=== PATIENT | female | born 1985 | race Caucasian/White ===

== ENCOUNTER → 2016-08-04 | Outpatient (CLI) | payer OTHER ==
[2016-08-04 10:23] LABS: HEMATOCRIT 37.7 % (36.0-47.0); HEMOGLOBIN 12.5 g/dL (12.0-15.5); HGB HCT DIFFERENCE -0.2; MEAN CORPUSCULAR HEMOGLOBIN 26.9 pg (27.0-33.4); MEAN CORPUSCULAR HGB CONC 33.2 g/dL (32.0-36.0); MEAN CORPUSCULAR VOLUME 81 fl (80-97); RED BLOOD COUNT 4.65 10^6/uL (3.72-5.28); RED CELL DISTRIBUTION WIDTH 13.7 % (11.5-14.0)
[2016-08-04 10:43] LABS: ASPARTATE AMINO TRANSFERASE 15 U/L (14-36); CREATININE RESULT 0.55 mg/dL (0.52-1.25); LDH 411 U/L (313-618); URIC ACID 4.7 mg/dL (2.5-6.2)
== END ==
LOC: OD 09:28
PROVIDERS: ATTEND Registered Nurse Women's Health Care, Ambulatory
DX: O13.9 Gestational [pregnancy-induced] hypertension without significant proteinuria, unspecified trimester (principal)
CPT/HCPCS: 36415; 82565; 83615; 84450; 84550; 85027

== ENCOUNTER → 2016-08-11 | Outpatient (CLI) | payer OTHER ==
[2016-08-11 16:35] LABS: HEMATOCRIT 38.1 % (36.0-47.0); HEMOGLOBIN 12.2 g/dL (12.0-15.5); HGB HCT DIFFERENCE -1.5; MEAN CORPUSCULAR HEMOGLOBIN 26.4 pg (27.0-33.4); MEAN CORPUSCULAR VOLUME 83 fl (80-97); RED BLOOD COUNT 4.61 10^6/uL (3.72-5.28); RED CELL DISTRIBUTION WIDTH 13.8 % (11.5-14.0); WHITE BLOOD COUNT 11.9 10^3/uL (4.0-10.5)
[2016-08-11 17:02] LABS: ASPARTATE AMINO TRANSFERASE 17 U/L (14-36); CREATININE RESULT 0.58 mg/dL (0.52-1.25); LDH 430 U/L (313-618); URIC ACID 4.4 mg/dL (2.5-6.2)
== END ==
LOC: OD 16:03
PROVIDERS: ATTEND Registered Nurse Women's Health Care, Ambulatory
DX: O13.9 Gestational [pregnancy-induced] hypertension without significant proteinuria, unspecified trimester (principal)
CPT/HCPCS: 36415; 82565; 83615; 84450; 84550; 85027

== ENCOUNTER → 2016-08-18 | Outpatient (CLI) | payer OTHER ==
[2016-08-18 12:51] LABS: HEMOGLOBIN 12.4 g/dL (12.0-15.5); HGB HCT DIFFERENCE 0.2; MEAN CORPUSCULAR HEMOGLOBIN 27.4 pg (27.0-33.4); MEAN CORPUSCULAR HGB CONC 33.5 g/dL (32.0-36.0); MEAN CORPUSCULAR VOLUME 82 fl (80-97); RED BLOOD COUNT 4.51 10^6/uL (3.72-5.28); RED CELL DISTRIBUTION WIDTH 14.1 % (11.5-14.0); WHITE BLOOD COUNT 10.8 10^3/uL (4.0-10.5)
[2016-08-18 13:16] LABS: ASPARTATE AMINO TRANSFERASE 21 U/L (14-36); CREATININE RESULT 0.61 mg/dL (0.52-1.25); LDH 481 U/L (313-618); URIC ACID 4.3 mg/dL (2.5-6.2)
== END ==
LOC: OD 12:14
PROVIDERS: ATTEND Registered Nurse Women's Health Care, Ambulatory
DX: O14.90 Unspecified pre-eclampsia, unspecified trimester (principal)
CPT/HCPCS: 36415; 82565; 83615; 84450; 84550; 85027

== ENCOUNTER 2016-08-22 09:21 | Outpatient (CLI) | payer OTHER ==
--- NOTE | 2016-08-22 10:01 | L&D Flow Sheet ---
LD Flowsheet Datetime Report Generated by CPN: 08/22/2016 10:00 Datetime: 08/22/2016 09:45 Vital Signs NBP Sys/Parul/Mean (mmHg): 127 (QS system process) : 77 (QS system process) : 89 (QS system process) Pulse: 94 (QS system process) Datetime: 08/22/2016 09:43 Communication Communication Comments: IV started (Elle Reji, RN) Datetime: 08/22/2016 09:33 Patient Care Patient Position/Activity: Right Extreme; Low Fowlers (Elle Mendoza, RN) Datetime: 08/22/2016 09:32 Communication Communication Comments: sent from office for repeat NST, IV fluids for hydration for stomach bug (Elle Mendoza RN)
== END 2016-08-22 10:43 | disposition home or self-care (01) ==
LOC: LC 09:21
PROVIDERS: ATTEND Obstetrics & Gynecology
PROC: 4A1HXCZ Monitoring of Products of Conception, Cardiac Rate, External Approach (ICD-10-PCS; principal; 2016-08-22)
DX: Z34.93 Encounter for supervision of normal pregnancy, unspecified, third trimester (principal); Z36 Encounter for antenatal screening of mother; Z3A.35 35 weeks gestation of pregnancy
CPT/HCPCS: 59025

== ENCOUNTER → 2016-08-25 | Outpatient (CLI) | payer OTHER ==
[2016-08-25 11:35] LABS: ASPARTATE AMINO TRANSFERASE 19 U/L (14-36); CREATININE RESULT 0.59 mg/dL (0.52-1.25); LDH 434 U/L (313-618); URIC ACID 4.7 mg/dL (2.5-6.2)
[2016-08-25 11:41] LABS: HEMATOCRIT 40.4 % (36.0-47.0); HEMOGLOBIN 13.1 g/dL (12.0-15.5); HGB HCT DIFFERENCE -1.1; MEAN CORPUSCULAR HEMOGLOBIN 26.5 pg (27.0-33.4); MEAN CORPUSCULAR HGB CONC 32.5 g/dL (32.0-36.0); MEAN CORPUSCULAR VOLUME 82 fl (80-97); RED BLOOD COUNT 4.95 10^6/uL (3.72-5.28); WHITE BLOOD COUNT 10.8 10^3/uL (4.0-10.5)
== END ==
LOC: OD 09:30
PROVIDERS: ATTEND Registered Nurse Women's Health Care, Ambulatory
DX: O14.90 Unspecified pre-eclampsia, unspecified trimester (principal)
CPT/HCPCS: 36415; 82565; 83615; 84450; 84550; 85027

== ENCOUNTER → 2016-09-01 | Outpatient (CLI) | payer OTHER ==
[2016-09-01 11:04] LABS: HEMATOCRIT 40.2 % (36.0-47.0); HGB HCT DIFFERENCE -1.2; MEAN CORPUSCULAR HEMOGLOBIN 26.1 pg (27.0-33.4); MEAN CORPUSCULAR HGB CONC 32.5 g/dL (32.0-36.0); MEAN CORPUSCULAR VOLUME 80 fl (80-97); RED CELL DISTRIBUTION WIDTH 14.4 % (11.5-14.0); WHITE BLOOD COUNT 11.4 10^3/uL (4.0-10.5)
[2016-09-01 11:26] LABS: ASPARTATE AMINO TRANSFERASE 25 U/L (14-36); CREATININE RESULT 0.63 mg/dL (0.52-1.25); LDH 488 U/L (313-618); URIC ACID 4.8 mg/dL (2.5-6.2)
== END ==
LOC: OD 09:45
PROVIDERS: ATTEND Obstetrics & Gynecology
DX: O14.02 Mild to moderate pre-eclampsia, second trimester (principal)
CPT/HCPCS: 36415; 82565; 83615; 84450; 84550; 85027

== ENCOUNTER 2016-09-03 10:15 | Inpatient (IN) | payer OTHER ==
[2016-09-05] MEDS ORDERED: MORPHINE SULFATE 10 MG/ML INJ IV PRN (05:44)
[2016-09-05] MEDS ORDERED: DIPH/PERTUSS(ACELL)/TETANUS VAC/PF 0.5 ML SYR (>=10YO) IM PRN ×2 (05:44→11:27)
[2016-09-05] MEDS ORDERED: OXYCODONE-ACETAMINOPHEN 5-325 MG TABLET PO PRN ×3 (05:44→11:27)
[2016-09-05] MEDS ORDERED: SIMETHICONE 80 MG TAB.CHEW PO PRN ×2 (05:44→11:27)
[2016-09-05] MEDS ORDERED: OXYTOCIN/NORMAL SALINE 20 UNIT/1,000 ML RTUINJ INJ PRN ×2 (05:44→11:27)
[2016-09-05] MEDS ORDERED: PROMETHAZINE HCL INJ 25 MG/1 ML VIAL IM PRN ×2 (05:44→11:27)
[2016-09-05] MEDS ORDERED: MEASLES,MUMPS&RUBELLA VACC/PF 0.5 ML VIAL SUBCUT PRN ×2 (05:44→11:27)
[2016-09-05] MEDS ORDERED: ACETAMINOPHEN 325 MG TABLET PO PRN ×2 (05:44→11:27)
[2016-09-05] MEDS ORDERED: IBUPROFEN 800 MG TABLET PO SCH ×2 (06:00→12:00)
[2016-09-05] MEDS ORDERED: RINGERS SOLUTION,LACTATED 1,000 ML IV PRN ×2 (06:01→06:02)
[2016-09-05] MEDS ORDERED: CEFAZOLIN 2 GM/D5W RTU 2 GM/50 ML RTUPB IV ONE ×2 (06:15)
[2016-09-05 06:45] LABS: APPEARANCE,URINE SLIGHTLY-CLOUDY; BILIRUBIN,URINE NEGATIVE (NEGATIVE); GLUCOSE, URINE NEGATIVE (NEGATIVE); KETONES,URINE NEGATIVE (NEGATIVE); LEUKOCYTE ESTERASE,URINE NEGATIVE (NEGATIVE); NITRITE,URINE NEGATIVE (NEGATIVE); PROTEIN,URINE NEGATIVE (NEGATIVE); URINE SPECIFIC GRAVITY 1.009; UROBILINOGEN,URINE NEGATIVE mg/dL (<2.0)
[2016-09-05 06:57] LABS: URINE BARBITURATES SCREEN NEGATIVE; URINE METHADONE SCREEN NEGATIVE; URINE OPIATES LOW NEGATIVE; URINE PHENCYCLIDINE SCREEN NEGATIVE
[2016-09-05] MEDS ORDERED: ONDANSETRON HCL INJ/PF 4 MG/2 ML SDV ONE (07:36)
[2016-09-05] MEDS ORDERED: EPHEDRINE SULFATE INJ 50 MG/1 ML AMPULE ONE (07:36)
[2016-09-05] MEDS ORDERED: OXYTOCIN 10 UNIT/ML VIAL ONE (07:36)
[2016-09-05] MEDS ORDERED: FENTANYL CITRATE INJ/PF 100 MCG/2 ML AMPUL ONE (07:36)
[2016-09-05] MEDS ORDERED: MIDAZOLAM 2 MG/2 ML INJ ONE (07:37)
[2016-09-05] MEDS ORDERED: FENTANYL CITRATE INJ/PF 100 MCG/2 ML AMPUL IV PRN ×3 (08:06)
[2016-09-05] MEDS ORDERED: MEPERIDINE HCL/PF INJ 25 MG/1 ML DISP.SYRIN IV PRN (08:06)
[2016-09-05] MEDS ORDERED: DIPHENHYDRAMINE HCL 50 MG/ML VIAL IV PRN (08:06)
[2016-09-05] MEDS ORDERED: PROMETHAZINE HCL INJ 25 MG/1 ML VIAL IV PRN (08:06)
--- NOTE | 2016-09-05 08:19 | Non Stress Test Report ---
Non Stress Test Datetime Report Generated by CPN: 09/05/2016 08:18 DEMOGRAPHIC EGA NST: 35.2 INDICATION Indication for Study: Ordered by Provider MONITORING Monitor Explained: Monitor Explained; Test Explained; Patient Verbalized Understanding Time on Monitor: 08/22/2016 09:33 Time off Monitor: 08/22/2016 10:35 NST Duration: 62 NST INTERVENTIONS NST Interventions: PO Hydration; Reposition Patient Physician Notified NST: Dr. Desai BABY A: [id number] BABY A Movement : Present Contraction Frequency : none FHR Baseline : 145 Accelerations : 15X15 Decelerations : None Variability : Moderate 6-25bpm NST Review: Meets Criteria for Reactive NST NST Review and Verified By : Ang Castellanos RN NST Results: Reactive NST REPORT Report Trigger: Send Report
--- NOTE | 2016-09-05 09:01 | OPERATIVE REPORT E ---
Operative Report NAME: MUSTAPHA NUNEZ : 1985 AGE: 31Y DATE OF SURGERY: ROOM: 227 PREOPERATIVE DIAGNOSES: 1. IUP at 37 weeks and 2 days. 2. Preeclampsia, mild. 3. Breech presentation. POSTOPERATIVE DIAGNOSIS: 1. IUP at 37 weeks and 2 days. 2. Preeclampsia, mild. 3. Breech presentation. SURGEON: PATRICIA JADE MD. ANESTHESIA: Dr. Waldrop with spinal. PBX TECHNICIAN: Clemencia Monte, night assistant student. FINDINGS: A male in anne breech presentation with Apgars of 9 and 9, weight 6 pounds 15 ounces. COMPLICATIONS: None. ESTIMATED BLOOD LOSS: 600 mL. SPECIMENS REMOVED: None. PROCEDURE: Low-transverse hysterotomy section. PROCEDURE IN DETAIL: The patient was taken to the operating room, prepared and draped in a normal sterile fashion in a supine position with a leftward tilt. A transverse skin incision was made with a scalpel and carried through to the underlying layer of fascia with the same scalpel. The fascia was incised in the midline and extended laterally with Mayos. The fascia was then bluntly dissected from the rectus muscle and the rectus muscle was divided. The peritoneal cavity was entered bluntly with surgeon finger fracture with good visualization of the bladder and the uterus. The bladder blade was inserted. The hysterotomy was nicked with the scalpel and extended laterally with surgeon finger fracture. The infant's buttocks were then delivered. The bladder blade was removed. Using breech maneuvers, the legs were delivered and the infant was then delivered to the level of the scapula where the arms were swept out and the maxilla was pressed to flex the head, and the head was delivered without difficulty. The nose and mouth were suctioned with a suction bulb. The cord was clamped and cut and the infant was handed off to the waiting pediatricians. Cord blood was collected and the placenta was removed manually. The uterus was exteriorized and cleared of clots and debris. The hysterotomy was closed with 0 Monocryl in a running locked fashion. The second layer of the same suture was used to imbricate to ensure hemostasis. The uterus was then returned to the abdomen and the peritoneal cavity was cleared of clots and debris. Hysterotomy was reinspected and found to be hemostatic. The rectus muscle and peritoneum were then reapproximated with 2-0 Chromic using a mattress stitch. The fascia was closed with 0 Vicryl, the subcutaneous layer was closed with plain catgut, and the skin was closed with 4-0 Vicryl. The patient tolerated the procedure well. The sponge, lap and needle counts were correct x2. The patient was taken to recovery in stable condition. DICTATING PHYSICIAN: PATRICIA JADE M.D. [id number] PHY#: [id number] ID: [id number] JOB#: [id number] ACCT: [id number] cc:PATRICIA JADE M.D. >
[2016-09-05] MEDS ORDERED: MEPERIDINE HCL/PF INJ 25 MG/1 ML DISP.SYRIN ONE (09:26)
[2016-09-05] MEDS ORDERED: PRENATAL VITAMIN W-O CA NO5/FE FUMARATE/FA CAPSULE PO SCH (10:00)
[2016-09-05] MEDS ORDERED: DOCUSATE SODIUM 100 MG CAPSULE PO SCH (10:00)
--- NOTE | 2016-09-05 10:00 | L&D Flow Sheet ---
LD Flowsheet Datetime Report Generated by CPN: 09/05/2016 10:00 Datetime: 09/05/2016 09:55 Pulse: 74 (QS system process) SpO2 (%): 98 (QS system process) Datetime: 09/05/2016 09:50 Pulse: 75 (QS system process) SpO2 (%): 98 (QS system process) Datetime: 09/05/2016 09:45 Stage of : Recovery (Karissa Castellanos RN) NBP Sys/Parul/Mean (mmHg): 121 (QS system process) : 79 (QS system process) : 93 (QS system process) Pulse: 76 (QS system process) Pain Scale: 0 (Karissa Castellanos RN) Pain Presence: None/Denies (Karissa Castellanos RN) Pain Type: N/A (Karissa Castellanos RN) Datetime: 09/05/2016 09:44 Pulse: 79 (QS system process) SpO2 (%): 98 (QS system process) Datetime: 09/05/2016 09:39 Pulse: 79 (QS system process) SpO2 (%): 98 (QS system process) Datetime: 09/05/2016 09:34 Pulse: 77 (QS system process) SpO2 (%): 97 (QS system process) Datetime: 09/05/2016 09:30 Stage of : Recovery (Karissa Castellanos RN) NBP Sys/Parul/Mean (mmHg): 114 (QS system process) : 78 (QS system process) : 86 (QS system process) Pulse: 77 (QS system process) Pain Scale: 0 (Karissa Castellanos RN) Pain Presence: None/Denies (Karissa Castellanos RN) Pain Type: N/A (Karissa Castellanos RN) Datetime: 09/05/2016 09:29 Pulse: 82 (QS system process) SpO2 (%): 98 (QS system process) Datetime: 09/05/2016 09:24 Pulse: 77 (QS system process) SpO2 (%): 98 (QS system process) Datetime: 09/05/2016 09:19 Pulse: 76 (QS system process) SpO2 (%): 98 (QS system process) Datetime: 09/05/2016 09:15 Stage of : Recovery (Karissa Castellanos RN) NBP Sys/Parul/Mean (mmHg): 110 (QS system process) : 55 (QS system process) : 78 (QS system process) Pulse: 77 (QS system process) Pain Scale: 0 (Karissa Castellanos RN) Pain Presence: None/Denies (Karissa Castellanos RN) Pain Type: N/A (Karissa Castellanos RN) Datetime: 09/05/2016 09:14 Pulse: 82 (QS system process) SpO2 (%): 97 (QS system process) Datetime: 09/05/2016 09:09 Pulse: 83 (QS system process) SpO2 (%): 97 (QS system process) Datetime: 09/05/2016 09:04 Pulse: 86 (QS system process) SpO2 (%): 97 (QS system process) Datetime: 09/05/2016 09:00 NBP Sys/Parul/Mean (mmHg): 112 (QS system process) : 55 (QS system process) : 78 (QS system process) Pulse: 87 (QS system process) Datetime: 09/05/2016 08:59 Pulse: 89 (QS system process) SpO2 (%): 97 (QS system process) Datetime: 09/05/2016 08:55 Stage of : Recovery (Karissa Castellanos RN) NBP Sys/Parul/Mean (mmHg): 107 (QS system process) : 58 (QS system process) : 79 (QS system process) Pulse: 99 (QS system process) Pain Scale: 0 (Karissa Castellanos RN) Pain Presence: None/Denies (Karissa Castellanos RN) Pain Type: N/A (Karissa Castellanos RN) Datetime: 09/05/2016 08:54 Pulse: 92 (QS system process) Pulse: 89 (QS system process) SpO2 (%): 97 (QS system process) SpO2 (%): 93 (QS system process) Datetime: 09/05/2016 08:49 NBP Sys/Parul/Mean (mmHg): 104 (QS system process) : 55 (QS system process) : 76 (QS system process) Pulse: 92 (QS system process) Pulse: 89 (QS system process) Pulse: 91 (QS system process) SpO2 (%): 92 (QS system process) Datetime: 09/05/2016 08:45 Stage of : Recovery (Karissa Castellanos, RN) Datetime: 09/05/2016 06:02 Bedside Blood Glucose: 90 (QS system process)
[2016-09-05] MEDS ORDERED: OXYTOCIN/NORMAL SALINE 20 UNIT/1,000 ML RTUINJ ONE (10:16)
[2016-09-05] MEDS ORDERED: DIPHENHYDRAMINE HCL 50 MG/ML VIAL ONE (10:22)
[2016-09-05] MEDS ORDERED: ACETAMINOPHEN 100 ML IV ONE (10:27)
[2016-09-05] MEDS ORDERED: MORPHINE SULFATE 10 MG/ML INJ ONE (11:23)
[2016-09-05] MEDS: OXYCODONE-ACETAMINOPHEN 5-325 MG TABLET PO PRN ×3 (12:53→22:13)
[2016-09-05] MEDS: MORPHINE SULFATE 10 MG/ML INJ IV PRN ×2 (14:57→19:58)
[2016-09-05] MEDS: KETOROLAC TROMETHAMINE INJ/PF 30 MG/1 ML SDV IV SCH (16:23)
[2016-09-05] MEDS: DOCUSATE SODIUM 100 MG CAPSULE PO SCH (17:38)
--- NOTE | 2016-09-05 19:00 | L&D Flow Sheet ---
LD Flowsheet Datetime Report Generated by CPN: 09/05/2016 19:00 Datetime: 09/05/2016 10:45 Stage of : Recovery (Karissa Castellanos, RN) Datetime: 09/05/2016 10:40 Pulse: 73 (QS system process) SpO2 (%): 100 (QS system process) Datetime: 09/05/2016 10:35 Pulse: 77 (QS system process) SpO2 (%): 100 (QS system process) Datetime: 09/05/2016 10:30 Stage of : Recovery (Karissa Castellanos RN) NBP Sys/Parul/Mean (mmHg): 115 (QS system process) : 71 (QS system process) : 88 (QS system process) Pulse: 71 (QS system process) Pulse: 73 (QS system process) SpO2 (%): 100 (QS system process) Pain Scale: 0 (Karissa Castellanos RN) Pain Presence: None/Denies (Karissa Castellanos RN) Pain Type: N/A (Karissa Castellanos RN) Datetime: 09/05/2016 10:25 Pulse: 73 (QS system process) SpO2 (%): 100 (QS system process) Datetime: 09/05/2016 10:20 Pulse: 77 (QS system process) SpO2 (%): 99 (QS system process) Datetime: 09/05/2016 10:15 Stage of : Recovery (Karissa Castellanos RN) NBP Sys/Parul/Mean (mmHg): 116 (QS system process) : 71 (QS system process) : 88 (QS system process) Pulse: 79 (QS system process) Pulse: 76 (QS system process) SpO2 (%): 97 (QS system process) Pain Scale: 0 (Karissa Castellanos RN) Pain Presence: None/Denies (Karissa Castellanos RN) Pain Type: N/A (Karissa Castellanos RN) Datetime: 09/05/2016 10:10 Pulse: 75 (QS system process) SpO2 (%): 97 (QS system process) Datetime: 09/05/2016 10:05 Pulse: 75 (QS system process) SpO2 (%): 98 (QS system process) Datetime: 09/05/2016 10:00 Stage of : Recovery (Karissa Castellanos RN) NBP Sys/Parul/Mean (mmHg): 110 (QS system process) : 68 (QS system process) : 85 (QS system process) Pulse: 72 (QS system process) Pulse: 69 (QS system process) SpO2 (%): 97 (QS system process) Pain Scale: 0 (Karissa Castellanos RN) Pain Presence: None/Denies (Karissa Castellanos RN) Pain Type: N/A (Karissa Castellanos, RN) Datetime: 09/05/2016 09:55 Pulse: 74 (QS system process) SpO2 (%): 98 (QS system process) Datetime: 09/05/2016 09:50 Pulse: 75 (QS system process) SpO2 (%): 98 (QS system process) Datetime: 09/05/2016 09:45 Stage of : Recovery (Karissa Castellanos RN) NBP Sys/Parul/Mean (mmHg): 121 (QS system process) : 79 (QS system process) : 93 (QS system process) Pulse: 76 (QS system process) Pain Scale: 0 (Karissa Castellanos, RN) Pain Presence: None/Denies (Karissa Castellanos, RN) Pain Type: N/A (Karissa Castellanos, RN) Datetime: 09/05/2016 09:44 Pulse: 79 (QS system process) SpO2 (%): 98 (QS system process) Datetime: 09/05/2016 09:39 Pulse: 79 (QS system process) SpO2 (%): 98 (QS system process) Datetime: 09/05/2016 09:34 Pulse: 77 (QS system process) SpO2 (%): 97 (QS system process) Datetime: 09/05/2016 09:30 Stage of : Recovery (Karissa Castellanos RN) NBP Sys/Parul/Mean (mmHg): 114 (QS system process) : 78 (QS system process) : 86 (QS system process) Pulse: 77 (QS system process) Pain Scale: 0 (Karissa Castellanos RN) Pain Presence: None/Denies (Karissa Castellanos RN) Pain Type: N/A (Karissa Castellanos RN) Datetime: 09/05/2016 09:29 Pulse: 82 (QS system process) SpO2 (%): 98 (QS system process) Datetime: 09/05/2016 09:24 Pulse: 77 (QS system process) SpO2 (%): 98 (QS system process) Datetime: 09/05/2016 09:19 Pulse: 76 (QS system process) SpO2 (%): 98 (QS system process) Datetime: 09/05/2016 09:15 Stage of : Recovery (Karissa Castellanos RN) NBP Sys/Parul/Mean (mmHg): 110 (QS system process) : 55 (QS system process) : 78 (QS system process) Pulse: 77 (QS system process) Pain Scale: 0 (Karissa Castellanos RN) Pain Presence: None/Denies (Karissa Castellanos RN) Pain Type: N/A (Karissa Castellanos RN) Datetime: 09/05/2016 09:14 Pulse: 82 (QS system process) SpO2 (%): 97 (QS system process) Datetime: 09/05/2016 09:09 Pulse: 83 (QS system process) SpO2 (%): 97 (QS system process) Datetime: 09/05/2016 09:04 Pulse: 86 (QS system process) SpO2 (%): 97 (QS system process) Datetime: 09/05/2016 09:00 NBP Sys/Parul/Mean (mmHg): 112 (QS system process) : 55 (QS system process) : 78 (QS system process) Pulse: 87 (QS system process) Datetime: 09/05/2016 08:59 Pulse: 89 (QS system process) SpO2 (%): 97 (QS system process) Datetime: 09/05/2016 08:55 Stage of : Recovery (Karissa Castellanos RN) NBP Sys/Parul/Mean (mmHg): 107 (QS system process) : 58 (QS system process) : 79 (QS system process) Pulse: 99 (QS system process) Pain Scale: 0 (Karissa Castellanos, RN) Pain Presence: None/Denies (Karissa Castellanos, RN) Pain Type: N/A (Karissa Castellanos, RN) Datetime: 09/05/2016 08:54 Pulse: 92 (QS system process) Pulse: 89 (QS system process) SpO2 (%): 97 (QS system process) SpO2 (%): 93 (QS system process) Datetime: 09/05/2016 08:49 NBP Sys/Parul/Mean (mmHg): 104 (QS system process) : 55 (QS system process) : 76 (QS system process) Pulse: 92 (QS system process) Pulse: 89 (QS system process) Pulse: 91 (QS system process) SpO2 (%): 92 (QS system process) Datetime: 09/05/2016 08:45 Stage of : Recovery (Karissa Castellanos RN)
[2016-09-06] MEDS: KETOROLAC TROMETHAMINE INJ/PF 30 MG/1 ML SDV IV SCH ×2 (00:08→08:25)
[2016-09-06] MEDS: OXYCODONE-ACETAMINOPHEN 5-325 MG TABLET PO PRN ×4 (03:57→21:19)
--- NOTE | 2016-09-06 06:00 | L&D General Admission ---
General Admit Datetime Report Generated by CPN: 09/06/2016 06:00 INFORMATION Patient Age: 31 (08/22/2016 09:21:QS system process) EDC: 09/24/2016 00:00 (08/22/2016 09:27:Elle Mendoza RN) Para: 1 (08/22/2016 10:31:Elle Mendoza RN) Baby, Number in Womb: 1 (08/22/2016 10:31:Elle Mendoza RN) CARE Height (in): 64 (09/05/2016 10:41:QS system process) ALLERGIES Medication Allergies: No Known Allergies (09/05/2016) (09/05/2016 05:35:QS system process) DEMOGRAPHICS Address: [address] [place] [id number] (08/22/2016 09:21:QS system process) Zipcode: [phone] (08/22/2016 09:21:QS system process) Home (08/22/2016 09:21:QS system process) Work (08/22/2016 09:21:QS system process) SSN: [id number] (08/22/2016 09:21:QS system process) Next of Kin Name: TANA NUNEZ (08/22/2016 09:21:QS system process) Next of Kin (08/22/2016 09:21:QS system process) Next of Kin Relationship: SPO (08/22/2016 09:21:QS system process) Date of : 1985 (08/22/2016 09:21:QS system process) Marital Status: (08/22/2016 09:21:QS system process) Sex: Female (08/22/2016 09:21:QS system process) Race: (08/22/2016 09:21:QS system process) Ethnicity: Non- or (08/22/2016 09:21:QS system process) Islam: Other (08/22/2016 09:21:QS system process) LABS Hemoglobin: 13.0 (09/01/2016 10:35:QS system process) Hematocrit: 40.2 (09/01/2016 10:35:QS system process) MCV: 80 (09/01/2016 10:35:QS system process)
[2016-09-06 07:16] LABS: HEMATOCRIT 39.7 % (36.0-47.0); HEMOGLOBIN 12.9 g/dL (12.0-15.5); MEAN CORPUSCULAR HEMOGLOBIN 26.4 pg (27.0-33.4); MEAN CORPUSCULAR HGB CONC 32.6 g/dL (32.0-36.0); MEAN CORPUSCULAR VOLUME 81 fl (80-97); RED CELL DISTRIBUTION WIDTH 14.6 % (11.5-14.0); WHITE BLOOD COUNT 14.1 10^3/uL (4.0-10.5)
[2016-09-06] MEDS ORDERED: OXYCODONE HCL IR 5 MG TABLET ONE (08:40)
[2016-09-06] MEDS: PRENATAL VITAMIN W-O CA NO5/FE FUMARATE/FA CAPSULE PO SCH (10:31)
[2016-09-06] MEDS: DOCUSATE SODIUM 100 MG CAPSULE PO SCH ×2 (10:31→17:14)
--- NOTE | 2016-09-06 11:51 | PDOC PROGRESS REPORT ---
Subjective-OB Subjective: Post Delivery Day: 31 year old. Denies any needs at this time. Pt doing well, no concerns. She reports light bleeding, regular diet and voiding well. Physical Exam (OB) Vital Signs: Temp Pulse Resp BP Pulse Ox 97.7 F 80 20 120/71 98 09/06/16 08:42 09/06/16 08:42 09/06/16 08:42 09/06/16 08:42 09/06/16 08:42 Intake & Output 09/05/16 09/06/16 09/07/16 06:59 06:59 06:59 Output Total 1350 Balance -1350 Weight 95.5 kg - Dressing Removed: No Incision: Dressing Closure Type: op site - Lochia Lochia Amount: Small 10-25 ml Lochia Color: Rubra/Red - Abdomen Description: Soft, Round Hernia Present: No Fundal Description: Firm, Midline Fundal Height: u/u - u/2 Objective-Diagnostic Laboratory: 09/06/16 06:31 09/06/16 06:31 WBC 14.1 H RBC 4.90 Hgb 12.9 Hct 39.7 MCV 81 MCH 26.4 L MCHC 32.6 RDW 14.6 H Plt Count 244 Assessment and Plan(PN) - Assessment and Plan (1) delivery delivered Is this a current diagnosis for this admission?: Yes - Time Spent with Patient Time with patient: Less than 15 minutes Medications reviewed and adjusted accordingly: Yes - Disposition Anticipated Discharge: Home Within: within 24 hours
[2016-09-06] MEDS: IBUPROFEN 800 MG TABLET PO SCH ×2 (14:17→21:19)
[2016-09-06] MEDS ORDERED: FAMOTIDINE 20 MG TABLET PO ONE (14:30)
[2016-09-06] MEDS ORDERED: FAMOTIDINE 20 MG TABLET PO PRN (18:00)
[2016-09-06] MEDS: AMOXICILLIN TR/POT CLAVULANATE 500-125 MG TAB PO SCH (21:19)
[2016-09-06] MEDS ORDERED: MAG HYDROX/AL HYDROX/SIMETH SUSP 30 ML UDCUP PO PRN (21:24)
[2016-09-07] MEDS: OXYCODONE-ACETAMINOPHEN 5-325 MG TABLET PO PRN ×3 (01:29→10:43)
[2016-09-07] MEDS: IBUPROFEN 800 MG TABLET PO SCH ×2 (03:01→08:22)
[2016-09-07] MEDS: PRENATAL VITAMIN W-O CA NO5/FE FUMARATE/FA CAPSULE PO SCH (10:43)
[2016-09-07] MEDS: AMOXICILLIN TR/POT CLAVULANATE 500-125 MG TAB PO SCH (10:43)
[2016-09-07] MEDS: DOCUSATE SODIUM 100 MG CAPSULE PO SCH (10:43)
--- NOTE | 2016-09-07 11:53 | PDOC DISCHARGE SUMMARY ---
Final Diagnosis Discharge Date: 09/07/16 - Final Diagnosis (1) delivery delivered Is this a current diagnosis for this admission?: Yes Discharge Data - Discharge Medication Home Medications: Cyclobenzaprine HCl 10 mg PO TID 09/05/16 Ergocalciferol (Vitamin D2) [Vitamin D2] 1 tab PO ASDIR PRN 09/05/16 Labetalol HCl 100 mg PO DAILY 09/05/16 Ranitidine HCl 150 mg PO BID 09/05/16 Reason(s) for Admission: Ceasarean Section-Primary, Obstetric Complications Admission Note: Mild Pre Eclampsia, 37 wks Breech presentation Procedures: NST Intrapartum Procedure(s): : Low Cervical, Transverse - Diagnosis Test Laboratory: Temp Pulse Resp BP Pulse Ox 98.0 F 75 16 129/81 H 99 09/07/16 07:22 09/07/16 07:22 09/07/16 07:22 09/07/16 07:22 09/07/16 07:22 09/05/16 09/06/16 05:15 06:31 RBC 4.90 Hgb 12.9 Hct 39.7 Urine Opiates Screen NEGATIVE - Discharge information/Instructions Discharge Activity: Balance Activity w/Rest, No Lifting Over 10 Pounds, Pelvic Rest, No tub bath Discharge Diet: Regular Disposition: HOME, SELF-CARE Follow up with: [facility] in: 5, Days
[2016-09-07 12:23] VITALS: BP 106/73
== END 2016-09-07 13:25 | disposition home or self-care (01) | DRG 766 ==
LOC: 2S 09-05 05:04
PROVIDERS: ADMIT Obstetrics & Gynecology; ATTEND Obstetrics & Gynecology
PROC: 4A1HXCZ Monitoring of Products of Conception, Cardiac Rate, External Approach (ICD-10-PCS; 2016-09-05)
PROC: 10D00Z1 Extraction of Products of Conception, Low, Open Approach (ICD-10-PCS; principal; 2016-09-05 07:45)
DX: O32.1XX0 Maternal care for breech presentation, not applicable or unspecified (principal); O14.04 Mild to moderate pre-eclampsia, complicating childbirth; O24.429 Gestational diabetes mellitus in childbirth, unspecified control; Z82.49 Family history of ischemic heart disease and other diseases of the circulatory system; Z83.3 Family history of diabetes mellitus; Z82.3 Family history of stroke; Z3A.37 37 weeks gestation of pregnancy; Z37.0 Single live birth
CPT/HCPCS: 1961; 36415; 59025; 80307; 81001; 82962; 85027; 86850; 86900; 86901; J0131; J0690; J1200; J1885; J2175; J2250; J2270; J2405; J2590; J3010; J3490; J7120

== ENCOUNTER → 2016-12-31 | Outpatient (CLI) | payer OTHER ==
[2016-12-31 12:20] LABS: HEMATOCRIT 40.4 % (36.0-47.0); HEMOGLOBIN 13.4 g/dL (12.0-15.5); HGB HCT DIFFERENCE -0.2; MEAN CORPUSCULAR HEMOGLOBIN 27.8 pg (27.0-33.4); MEAN CORPUSCULAR VOLUME 84 fl (80-97); RED CELL DISTRIBUTION WIDTH 13.8 % (11.5-14.0); WHITE BLOOD COUNT 6.8 10^3/uL (4.0-10.5)
[2016-12-31 12:49] LABS: ALANINE AMINOTRANSFERASE 33 U/L (9-52); ALBUMIN 4.5 g/dL (3.5-5.0); ALKALINE PHOSPHATASE 105 U/L (38-126); ANION GAP 13 (5-19); ASPARTATE AMINO TRANSFERASE 34 U/L (14-36); BILIRUBIN,DIRECT 0.3 mg/dL (0.0-0.4); BILIRUBIN,TOTAL 0.5 mg/dL (0.2-1.3); BLOOD UREA NITROGEN 12 mg/dL (7-20); CALCIUM 10.1 mg/dL (8.4-10.2); CARBON DIOXIDE 28 mmol/L (22-30); CHLORIDE 102 mmol/L (98-107); CHOLESTEROL 262.03 mg/dL (0-200); CREATININE RESULT 0.69 mg/dL (0.52-1.25); Direct HDL 70 mg/dL (>40); GLUCOSE 83 mg/dL (75-110); POTASSIUM 4.6 mmol/L (3.6-5.0); SODIUM 142.6 mmol/L (137-145); TOTAL PROTEIN 7.7 g/dL (6.3-8.2); TRIGLYCERIDES 84 mg/dL (<150)
[2016-12-31 13:00] LABS: DIRECT LDL 162 mg/dL (<100)
== END ==
LOC: OD 11:21
PROVIDERS: ATTEND Nurse Practitioner Primary Care
DX: E66.9 Obesity, unspecified (principal); M54.2 Cervicalgia; D48.9 Neoplasm of uncertain behavior, unspecified; R14.3 Flatulence; R20.8 Other disturbances of skin sensation; M25.512 Pain in left shoulder
CPT/HCPCS: 36415; 80053; 80061; 82306; 83036; 84443; 85027